=== PATIENT | female | born 1975 | race African-American/Black ===

== ENCOUNTER 2025-02-23 15:27 | Emergency (ER) | payer OTHER, SELFPAY ==
[2025-02-23 15:36] VITALS: BP 144/85; PULSE 56; RESP 16; TEMP 36.7; O2SAT 99
--- NOTE | 2025-02-23 15:40 | ED.SKABFB ---
HPI - Skin/Abscess/Foreign Bdy General Chief complaint: Wound/Laceration Stated complaint: Bee Sting Left Hand Time Seen by Provider: 02/23/25 15:40 Source: patient Mode of arrival: ambulatory Limitations: no limitations History of Present Illness HPI narrative: Lois is a 50-year-old female patient presenting to the clinic today with complaints of a bee sting to her left hand that occurred yesterday. She reports the area is red, swollen, and itching. States that there may be a bee stinger stuck in her hand. She attempted to use a credit card to remove it. Denies any shortness of breath, chest pain, or difficulty swallowing. Related Data Home Medications ?Medication ?Instructions ?Recorded ?Confirmed ?Last Taken ?Type estradiol 0.05 mg/24 hr semiweekly 02/23/25 Unknown History transdermal patch progesterone micronized 100 mg mg 02/23/25 Unknown History capsule Allergies Allergy/AdvReac Type Severity Reaction Status Date / Time No Known Drug Allergies Allergy none Verified 02/23/25 15:41 Review of Systems Review of Systems: Pertinent positives per HPI. Patient denies any fever, chills, headache, visual changes, dizziness, cough, runny nose, sore throat, shortness of breath, chest pain, palpitations, nausea, vomiting, diarrhea, constipation, abdominal pain, or any urinary issues. PMFSH Comments At the time of my signature, I reviewed and agree with the nursing past medical, surgical, social, and family history. There is no relevant family history pertinent to the patient complaint. Exam Narrative: General: Well-developed, well nourished, in no apparent distress Head: Normocephalic, atraumatic. Cardio: Regular rate and rhythm, s1 and s2 normal, no murmur appreciated. Resp: Clear to auscultation bilaterally, no rhonchi, rales, wheezing or rubs. Integumentary: [place], warm, and dry, red, mild erythema, mild swelling to the dorsal hand and distal wrist, itchy localized rash around bee sting injury to the dorsal left hand. Course Course Emergency Course: Portions of this record may have been created with voice recognition software. Level of Care: Express Care Visit Vital Signs Vital signs: Vital Signs Temperature 36.7 C 02/23/25 15:36 Pulse Rate 56 L 02/23/25 15:36 Respiratory Rate 16 02/23/25 15:36 Blood Pressure 144/85 H 02/23/25 15:36 Pulse Oximetry 99 02/23/25 15:36 Oxygen Delivery Room Air 02/23/25 15:36 Temperature 36.7 C 02/23/25 15:36 Pulse Rate 56 L 02/23/25 15:36 Respiratory Rate 16 02/23/25 15:36 Blood Pressure 144/85 H 02/23/25 15:36 Pulse Oximetry 99 02/23/25 15:36 Oxygen Delivery Room Air 02/23/25 15:36 Vital signs reviewed MDM - Skin/Abscess/Foreign Bdy MDM Narrative Medical decision making narrative: At the time of visit patient is resting comfortably on the exam table. Patient appears to be nontoxic. Plan: I suspect patient has a general allergic reaction to a bee sting. Prescription for prednisone and triamcinolone cream was sent to the pharmacy. Encouraged her use Benadryl as needed for itching/swelling and apply cool compress. Supportive measures were discussed with the patient and they voiced understanding discharge instructions and agrees to treatment plan. Return precautions reviewed Differential Diagnosis Differential diagnosis: Likely abscess of skin or subcutaneous tissue, viral exanthem, dermatophytosis, urticaria, herpes zoster, allergic reaction to drug, cellulitis, eczema, insect bites, impetigo and contact dermatitis Discharge Plan Discharge Clinical Impression: Allergic reaction to bee sting Patient Disposition: Home Condition: Stable Instructions: Antibiotic Form, Insect Bite or Sting (ED), General Allergic Reaction (ED) Additional Instructions: Apply triamcinolone cream as directed Take prednisone as directed Avoid hot showers May apply cool compress over the area to help alleviate itching and swelling Avoid scratching as this can cause a secondary infection May take benadryl 25-50mg every 6 hours as needed for itching. Follow up with your PCP in 3-5 days if symptoms persist or sooner if they worsen Go to the Emergency Room if symptoms worsen- fever, rash spreading with treatment, shortness of breath, tongue swelling, drooling, or chest pain Patient Language: Mauritian Prescriptions: New prednisone 20 mg tablet 40 mg PO DAILY 5 Days Qty: 10 0RF triamcinolone acetonide 0.1 % cream 1 applic topical BID 7 Days Qty: 30 0RF No Action estradiol 0.05 mg/24 hr patch semiweekly progesterone micronized 100 mg capsule Follow-up/Referrals: PHYSICIAN NOT ON STAFF,NONSTAFF [Primary Care Provider] - Time of Disposition: 15:41 Quality NIHSS Nursing Documentation ED NIHSS nursing documentation: reviewed/agree
== END 2025-02-23 15:51 | disposition home or self-care (01) ==
PROVIDERS: Emergency Provider Nurse Practitioner Family
DX: T63.441A Toxic effect of venom of bees, accidental (unintentional), initial encounter (principal)
CPT/HCPCS: 99203; G0463